=== PATIENT | female | born 1945 | race Caucasian/White ===

== ENCOUNTER → 2024-03-12 14:37 | Outpatient (REF) | payer OTHER, SELFPAY | LOC: HWRCS 14:37 | PROVIDERS: ATTENDING PHYSICIAN Internal Medicine Cardiovascular Disease; FAMILY PHYSICIAN Family Medicine | DX: I49.1 Atrial premature depolarization (principal); R55 Syncope and collapse; I95.9 Hypotension, unspecified | CPT/HCPCS: 93306 ==